=== PATIENT | male | born 1950 | race Caucasian/White ===

== ENCOUNTER 2017-04-10 08:42 | Emergency (ER) | payer MEDICARE, MEDICAID ==
[~2017-04-10] VITALS: Ht 152.4 cm; Wt 88.0 kg
[~2017-04-10 08:42] MED LIST: ASPIR 8181 M1 PO; AUGMENTIN 875-1 EACH PO; BACTRIM DS TAB1 EACH PO; CEFUROXIME500 MG PO; COZAAR 50 MG TA50 M2 PO; DUONEB 2.5-0.5 M3 ML INH; IRON325 PO; LASIX 40 MG TAB40 M2 PO; NAPROSYN500 M1 PO; NAPROSYN500 MG PO; NORCO 5-325 TA1 EACH PO; NYSTATIN15 G1 TOP; OMEPRAZOLE40 MG PO; PHENERGAN 25 MG25 M1 PO; POTASSIUM20 PO; PROAIR RESPICL90 MCG INH; SILVADENE20 GM TOP; SYMBICORT160 MCG/4. INH; TRAMADOL 50 MG50 MG PO
[2017-04-10 09:11] LABS: HEMOGLOBIN 11.6 gm/dL (14.0-18.0); RBC 3.78 mil/uL (4.50-6.00)
[2017-04-10 09:12] LABS: ABSOLUTE BASOPHILS 0.1 thou/uL (0.0-0.2); ABSOLUTE EOSINOPHILS 0.3 thou/uL (0.0-0.7); ABSOLUTE LYMPHOCYTES 1.1 thou/uL (0.8-5.3); ABSOLUTE MONOCYTES 0.7 thou/uL (0.0-1.2); ABSOLUTE NEUTROPHILS 6.2 thou/uL (1.6-8.1); BASOPHILS 1.3 %; EOSINOPHILS 3.2 %; LYMPHOCYTES 13.4 %; MCH 30.6 pg (26.0-34.0); MCV 89.9 fL (80.0-100.0); MONOCYTES 8.4 %; MPV 6.9 fl. (7.2-11.1); NUCLEATED RBCS 0 /100WBC; PLATELET COUNT* 236 thou/uL (150-400); POLYS 73.7 %; RDW-CV 17.4 % (10.5-14.5); WBC 8.4 thou/uL (4.0-11.0)
[2017-04-10 09:18] LABS: ANION GAP 4 mmol/L (7-16); BUN 22 mg/dL (7-18); CALCIUM 8.5 mg/dL (8.5-10.1); CHLORIDE 102 mmol/L (98-107); CO2 32 mmol/L (21-32); CREATININE 0.9 mg/dL (0.6-1.3); GLUCOSE 86 mg/dL (70-99); SODIUM 138 mmol/L (136-145)
[2017-04-10 09:23] LABS: APTT 30.6 Seconds (25.0-31.3); INR 1.1; PROTIME 10.8 Seconds (9.20-11.50)
[2017-04-10 09:34] LABS: TROPONIN-I LEVEL <0.06 ng/mL (<0.06)
[2017-04-10 09:46] LABS: ALBUMIN 2.2 g/dL (3.4-5.0); ALKALINE PHOSPHATASE 372 U/L (46-116); CK-MB MASS < 0.5 ng/mL (<0.5-3.6); LIPASE 72 U/L (73-393); MAGNESIUM 1.8 mg/dL (1.8-2.4); NT-PRO BRAIN NAT PEPTIDE 168 pg/mL (<300); SGOT 32 U/L (15-37); SGPT 23 U/L (30-65); TOTAL BILIRUBIN 0.6 mg/dL (<0.1-1.0); TOTAL PROTEIN 7.7 g/dL (6.4-8.2)
[2017-04-10 12:16] VITALS: BP 164/83
--- NOTE | 2017-04-10 17:46 | EKG ---
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 : 1950 Requested By: Abelardo Lucero Order Number: [id number] MD: Charli Romano Measurements Intervals [place] Rate: 83 P: 47 IN: 162 QRS: 33 QRSD: 116 T: 5 QT: 420 QTc: 494 Interpretive Statements Sinus rhythm Nonspecific intraventricular conduction delay Compared to ECG 03/27/2017 10:15:59 Intraventricular conduction delay now present T-wave abnormality no longer present Electronically Signed On 04-10-2017 17:46:32 [employer] by Charli Romano [email or web address] <ELECTRONICALLY SIGNED> By: Charli Romano MD, [facility] 04/10/17 1746 0858 0858 Charli Romano MD, [facility] /EPI
== END 2017-04-10 12:27 | disposition home or self-care (01) ==
LOC: M.ERS 08:42
PROVIDERS: Family Medicine
DX: R07.89 Other chest pain (principal); I10 Essential (primary) hypertension

== ENCOUNTER 2017-09-08 20:07 | Inpatient (IN) | payer MEDICARE, MEDICAID ==
[~2017-09-08] VITALS: Ht 160 cm; Wt 75.3 kg
--- NOTE | ~2017-09-08 | EKG ---
[place] [address] ELECTROCARDIOGRAM REPORT Name: SOM GOODWIN Room: [address] ADM IN .R.#: [id number] Admission: 09/08/17 Attend Phys: Herberth Gonzalez, Discharge: Date of : 48 Report #: [id number] THIS REPORT FOR: //name// [facility] ED Test Date: 2017-09-08 Test Time: 20:13:52 Pat Name: SOM GOODWIN Department: Room: [address] Gender: M Manager Assembly: ap : 1950 Requested By: Herberth Gonzalez Order Number: [id number] Reading MD: Measurements Intervals [place] Rate: 109 P: 73 ID: 150 QRS: 91 QRSD: 105 T: 39 QT: 323 QTc: 436 Interpretive Statements Sinus tachycardia Right axis deviation Compared to ECG 04/10/2017 08:58:15 Right-axis deviation now present Sinus rhythm no longer present Intraventricular conduction delay no longer present [email or web address] By: 12 12 Epiphany EpiphanyMD /EPI
[2017-09-08 20:12] VITALS: BP 102/71
[2017-09-08 20:47] LABS: ANION GAP 7 mmol/L (7-16); BUN 40 mg/dL (7-18); CALCIUM 9.1 mg/dL (8.5-10.1); CHLORIDE 99 mmol/L (98-107); CO2 31 mmol/L (21-32); CREATININE 1.6 mg/dL (0.6-1.3); GLUCOSE 150 mg/dL (70-99); HEMATOCRIT 38.7 % (42.0-52.0); HEMOGLOBIN 13.3 gm/dL (14.0-18.0); MCH 31.8 pg (26.0-34.0); MCHC 34.3 g/dL (28.0-37.0); MCV 92.8 fL (80.0-100.0); MPV 7.3 fl. (7.2-11.1); NUCLEATED RBCS 0 /100WBC; PLATELET COUNT* 182 thou/uL (150-400); POTASSIUM 4.1 mmol/L (3.5-5.1); RBC 4.17 mil/uL (4.50-6.00); RDW-CV 15.4 % (10.5-14.5); SODIUM 137 mmol/L (136-145); WBC 8.6 thou/uL (4.0-11.0)
[2017-09-08 20:55] LABS: ALBUMIN 2.1 g/dL (3.4-5.0); ALKALINE PHOSPHATASE 314 U/L (46-116); SGOT 37 U/L (15-37); SGPT 26 U/L (30-65); TOTAL BILIRUBIN 0.7 mg/dL (<0.1-1.0); TOTAL PROTEIN 8.7 g/dL (6.4-8.2); TROPONIN-I LEVEL <0.06 ng/mL (<0.06)
[2017-09-08] MEDS ORDERED: SSD CREAM 1% 5050 GM (21:12)
[2017-09-08 21:42] LABS: ABSOLUTE LYMPHOCYTES 0.9 thou/uL (0.8-5.3); ABSOLUTE MONOCYTES 0.3 thou/uL (0.0-1.2); ABSOLUTE NEUTROPHILS 7.5 thou/uL (1.6-8.1); ANISOCYTOSIS Occasional; PLATELET ESTIMATE ADEQUATE; TOXIC GRANULATION 1+
[2017-09-08 21:53] LABS: BE 2.8 mmol/L (-2 to +3); HCO3 28.8 mmol/L (22.0-26.0); PCO2 49.5 mmHg (35.0-45.0); pH 7.382 (7.340-7.450)
[2017-09-08 22:15] VITALS: BP 117/61
[2017-09-08 22:20] VITALS: BP 139/93
[2017-09-08 23:26] LABS: URINE BILIRUBIN NEGATIVE (Negative); URINE BLOOD NEGATIVE (Negative); URINE CLARITY CLEAR; URINE COLOR DARK YELLOW; URINE GLUCOSE-RANDOM NEGATIVE (Negative); URINE KETONES TRACE (Negative); URINE LEUKOCYTES NEGATIVE (Negative); URINE NITRITE NEGATIVE (Negative); URINE PROTEIN 3+ (Negative); URINE SPECIFIC GRAVITY 1.025 (1.005-1.030)
[2017-09-09 00:06] LABS: SQUAMOUS 0-3 Few /LPF (0-3)
[2017-09-09 00:07] LABS: AMORPHOUS URATES Moderate /LPF (None Seen); COARSE GRANULAR CASTS 4-10 Moderate /LPF (None Seen); FINE GRANULAR CASTS 4-10 Moderate /LPF (None Seen); HYALINE CASTS 0-3 Few /LPF (None Seen); MUCUS >6 Heavy strn/LPF (None Seen); URINE RBC 0-2 Rare /HPF (0-2); URINE WBC None Seen /HPF (0-5); WAXY CAST 0-3 Few /LPF (None Seen)
[2017-09-09 04:00] VITALS: BP 95/53
[2017-09-09 08:15] VITALS: BP 147/77
[2017-09-09 12:04] VITALS: BP 149/73
--- NOTE | 2017-09-09 14:52 | EKG ---
[place] [address] ELECTROCARDIOGRAM REPORT Name: SOM GOODWIN Room: [address] ADM IN .R.#: [id number] Admission: 09/08/17 Attend Phys: Herberth Gonzalez, Discharge: Date of : 48 Report #: [id number] THIS REPORT FOR: //name// [facility] ED Test Date: 2017-09-08 Test Time: 20:13:52 Pat Name: SOM GOODWIN Department: Room: [address] Gender: M Manager Hotel: ap : 1950 Requested By: Herberth Gonzalez Order Number: [id number] Christos MD: Ck Mack Measurements Intervals [place] Rate: 109 P: 73 ID: 150 QRS: 91 QRSD: 105 T: 39 QT: 323 QTc: 436 Interpretive Statements Sinus tachycardia artifact noted Right axis deviation Compared to ECG 04/10/2017 08:58:15 Right-axis deviation now present Sinus rhythm no longer present Electronically Signed On 09-09-2017 14:52:27 CDT by Ck Mack [email or web address] <ELECTRONICALLY SIGNED> By: Ck Mack MD, [facility] 09/09/17 1452 12 12 Ck Mack MD, [facility] /EPI
--- NOTE | 2017-09-09 14:56 | EKG ---
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
[2017-09-09 16:04] VITALS: BP 158/84
[2017-09-09 20:00] VITALS: BP 155/81
[2017-09-10] VITALS (7 sets, daily range): BP systolic 124–151; BP diastolic 74–93
[2017-09-10 04:52] LABS: ABSOLUTE LYMPHOCYTES 0.8 thou/uL (0.8-5.3); ABSOLUTE MONOCYTES 0.7 thou/uL (0.0-1.2); BASOPHILS 0.3 %; EOSINOPHILS 0.3 %; HEMATOCRIT 34.8 % (42.0-52.0); HEMOGLOBIN 11.7 gm/dL (14.0-18.0); MCH 31.3 pg (26.0-34.0); MCHC 33.6 g/dL (28.0-37.0); MONOCYTES 10.2 %; NUCLEATED RBCS 0 /100WBC; PLATELET COUNT* 134 thou/uL (150-400); POLYS 77.2 %; RBC 3.74 mil/uL (4.50-6.00); RDW-CV 15.3 % (10.5-14.5); WBC 6.5 thou/uL (4.0-11.0)
[2017-09-10 05:20] LABS: ANION GAP 6 mmol/L (7-16); BUN 14 mg/dL (7-18); CALCIUM 8.1 mg/dL (8.5-10.1); CHLORIDE 98 mmol/L (98-107); CO2 28 mmol/L (21-32); CREATININE 0.7 mg/dL (0.6-1.3); GLUCOSE 97 mg/dL (70-99); MAGNESIUM 1.6 mg/dL (1.8-2.4); POTASSIUM 4.4 mmol/L (3.5-5.1); SODIUM 132 mmol/L (136-145); TROPONIN-I LEVEL <0.06 ng/mL (<0.06)
[2017-09-11 04:44] LABS: CALCIUM 8.6 mg/dL (8.5-10.1); CREATININE 0.8 mg/dL (0.6-1.3); MAGNESIUM 1.8 mg/dL (1.8-2.4); POTASSIUM 4.1 mmol/L (3.5-5.1)
[2017-09-11 04:46] LABS: HEMATOCRIT 36.5 % (42.0-52.0); HEMOGLOBIN 12.4 gm/dL (14.0-18.0); MCHC 34.1 g/dL (28.0-37.0); MCV 91.1 fL (80.0-100.0); MPV 7.1 fl. (7.2-11.1); RBC 4.01 mil/uL (4.50-6.00); RDW-CV 14.8 % (10.5-14.5); WBC 5.7 thou/uL (4.0-11.0)
--- NOTE | 2017-09-11 07:33 | CON ---
[address] [address] CONSULTATION Name: SOM GOODWIN Room: [address] IN .#: [id number] Admission: 09/08/17 Attend Phys: Herberth Gonzalez, Discharge: Date of : 48 Report #: [id number] THIS REPORT FOR: //name// CC: FAM physician/PCP Herberth Gonazlez DATE OF SERVICE: 09/10/2017 ATTENDING PHYSICIAN: Herberth Gonzalez MD. REASON FOR EVALUATION: Pneumonitis in the setting of chronic disability, also has pressure related ulcer involving the sacrum. HISTORY OF PRESENT ILLNESS: Chart reviewed, patient examined. This 67-year-old gentleman with blindness since , also has some degree of mental incapacity who is cared at home by his sister who developed chest-related discomfort. It is not clear that he had significant shortness of breath, although he did have productive cough of greenish sputum, somewhat difficult to obtain a history. He does confirm the chest discomfort. He has not had evident fevers since admission. On evaluation, chest x-ray showed some pulmonary infiltrates. ABGs confirm borderline hypoxemia with pO2 in the 60s. He was started on broad spectrum empiric therapy for suspected pneumonitis. Initial lactic acid was 2.3 and repeat was down to 1.9. Blood cultures are sterile thus far. Sputum culture is pending. ALLERGIES: None known. CURRENT MEDICATIONS: Include hydrocodone as needed, losartan, azithromycin, cefdinir, enoxaparin, budesonide, pantoprazole and one-time dose of vancomycin as well. PAST MEDICAL HISTORY: As described above, blindness, apparently since , history of hypertension, chronic anemia. SOCIAL HISTORY: Nonsmoker, no ethanol, no illicit drug use. FAMILY HISTORY: Noncontributory. REVIEW OF SYSTEMS: He denies any significant gastrointestinal-related complaints. He has had a recent bowel movement. Denies significant abdominal related complaints. PHYSICAL EXAMINATION: GENERAL: Appears somewhat chronically ill, undernourished. He is in [id number]-iijnzvii distress. He is somewhat anxious. VITAL SIGNS: Temperature 97.7, pulse 88, respirations 18, [place] [address] CONSULTATION Name: SOM GOODWIN Room: [address]#: [id number] Admission: 09/08/17 Attend Phys: Herberth Gonzalez, Discharge: Date of : 48 Report #: [id number] 151/77. SKIN: Warm, dry, no rashes. 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 NECK: Supple. LUNGS: Few scattered coarse breath sounds. HEART: Regular. I do not appreciate murmur. ABDOMEN: Soft. There are no peritoneal signs. GENITOURINARY: Deferred. RECTAL: Deferred. LABORATORY DATA: Chest x-ray showed bilateral patchy pulmonary infiltrates without evidence of significant effusion. Electrolytes: Sodium 132, potassium 4.4, chloride 98, bicarbonate is 28, BUN and creatinine 14 and 0.7, glucose of 97. Estimated GFR of 112. CBC: White count of 6.5, H and H 11.7 and 34.8, platelets of 134. Blood cultures sterile thus far. Prealbumin of 10.7. Urinalysis, no white cells seen, 10-30 bacteria. ABGs: pH 7.38, pCO2 of 49.5, pO2 of 67.0. Liver function tests are otherwise unremarkable with the exception of alkaline phosphatase of 314, total protein of 87. Albumin of 2.1, calcium of 9.1. ASSESSMENT: Pneumonitis community-acquired. We will continue current therapy. It is actually somewhat tenuous. It may well be his baseline. We will await culture results in particular the sputum, try to increase his activity, I am not sure he is able to utilize incentive spirometer at this point. We will follow his clinical course and optimize his nutritional status. Wean off support as allowed. <ELECTRONICALLY SIGNED> By: Alan Mcpherson MD 09/11/17 0733 1114 [id number] Mcpherson MD /nt
[2017-09-11 08:00] VITALS: BP 112/81
[2017-09-11 15:56] VITALS: BP 169/92
[2017-09-11 20:00] VITALS: BP 152/91
[2017-09-12 04:27] LABS: HEMATOCRIT 39.8 % (42.0-52.0); HEMOGLOBIN 13.5 gm/dL (14.0-18.0); MCH 30.9 pg (26.0-34.0); MCHC 33.8 g/dL (28.0-37.0); MCV 91.3 fL (80.0-100.0); MPV 7.2 fl. (7.2-11.1); RBC 4.36 mil/uL (4.50-6.00); RDW-CV 15.2 % (10.5-14.5); WBC 6.9 thou/uL (4.0-11.0)
[2017-09-12 04:50] LABS: CALCIUM 8.5 mg/dL (8.5-10.1); CREATININE 0.7 mg/dL (0.6-1.3); MAGNESIUM 1.9 mg/dL (1.8-2.4); POTASSIUM 4.1 mmol/L (3.5-5.1)
[2017-09-12] MEDS ORDERED: AZITHROMYCIN 2250 MG PO (08:17)
[2017-09-12] MEDS ORDERED: PREDNISONE 10 M10 MG PO (08:17)
[2017-09-12] MEDS ORDERED: CEFDINIR300 MG PO (08:17)
[2017-09-12 09:45] VITALS: BP 139/92
[2017-09-12 16:12] LABS: GLOBULIN TOTAL 4.2 g/dL (2.2-3.9); M-SPIKE Not Observed g/dL (Not Observed)
[2017-09-12 16:56] VITALS: BP 142/89
[2017-09-12 19:46] VITALS: BP 142/89
[2017-09-12 20:00] VITALS: BP 151/86
[2017-09-13 00:08] VITALS: BP 189/102
[2017-09-13 02:06] VITALS: BP 118/64
[2017-09-13 04:00] VITALS: BP 118/61
[2017-09-13 09:06] VITALS: BP 127/80
[2017-09-13 16:36] VITALS: BP 170/100
[2017-09-13 20:00] VITALS: BP 156/100
[2017-09-14 08:00] VITALS: BP 117/72
[2017-09-14 15:44] VITALS: BP 98/57
[2017-09-14 21:00] VITALS: BP 144/97
[2017-09-15 00:14] VITALS: BP 167/64
[2017-09-15 04:00] VITALS: BP 136/76
[2017-09-15 06:44] LABS: HEMATOCRIT 36.4 % (42.0-52.0); HEMOGLOBIN 12.2 gm/dL (14.0-18.0); MCH 30.9 pg (26.0-34.0); MCHC 33.5 g/dL (28.0-37.0); MCV 92.3 fL (80.0-100.0); MPV 6.6 fl. (7.2-11.1); NUCLEATED RBCS 0 /100WBC; PLATELET COUNT* 191 thou/uL (150-400); RBC 3.95 mil/uL (4.50-6.00); RDW-CV 15.1 % (10.5-14.5); WBC 11.2 thou/uL (4.0-11.0)
[2017-09-15 06:52] LABS: ALBUMIN 1.6 g/dL (3.4-5.0); CALCIUM 8.3 mg/dL (8.5-10.1); CREATININE 0.7 mg/dL (0.6-1.3); TOTAL BILIRUBIN 0.3 mg/dL (<0.1-1.0); TOTAL PROTEIN 6.6 g/dL (6.4-8.2)
[2017-09-15 08:10] VITALS: BP 106/61
[2017-09-15 08:10] LABS: ABSOLUTE MONOCYTES 0.1 thou/uL (0.0-1.2); ABSOLUTE NEUTROPHILS 10.1 thou/uL (1.6-8.1)
[2017-09-15 08:11] LABS: PLATELET ESTIMATE ADEQUATE
[2017-09-15 12:58] LABS: URINE BILIRUBIN NEGATIVE (Negative); URINE BLOOD NEGATIVE (Negative); URINE CLARITY CLEAR; URINE COLOR YELLOW; URINE GLUCOSE-RANDOM NEGATIVE (Negative); URINE KETONES NEGATIVE (Negative); URINE LEUKOCYTES-REFLEX NEGATIVE (Negative); URINE NITRITE-REFLEX NEGATIVE (Negative); URINE PROTEIN 1+ (Negative); URINE SPECIFIC GRAVITY <= 1.005 (1.005-1.030); URINE UROBILINOGEN 0.2 E.U./dl (0.2-1.0)
[2017-09-15 17:04] VITALS: BP 139/78
[2017-09-15 20:20] VITALS: BP 142/87
[2017-09-16 00:21] VITALS: BP 169/96
[2017-09-16 04:07] VITALS: BP 149/85
[2017-09-16 08:45] VITALS: BP 136/72
--- NOTE | 2017-09-16 10:00 | CON ---
[facility] [address] [place] [address] CONSULTATION Name: SOM GOODWIN Room: [address] IN [facility]#: [id number] Admission: 09/08/17 Attend Phys: Herberth Gonzalez, Discharge: Date of : 48 Report #: [id number] THIS REPORT FOR: //name// CC: LILIA physician/PCP Herberth Gonzalez DATE OF SERVICE: 09/12/2017 REASON FOR CONSULTATION: Sigmoid volvulus, abdominal pain and vomiting. HISTORY OF PRESENT ILLNESS: This is a 67-year-old male who presented to the hospital with chest pain and found to have pneumonia. The patient has been treated for the same since 09/08/2017. The patient was getting ready to be discharged when he started developing abdominal pain, nausea and vomiting today. Therefore, CT of abdomen and pelvis was obtained. This revealed a sigmoid volvulus. Currently, the patient is complaining of pain, but his abdomen is somewhat soft. He has vomited 20 mL of bilious liquid. He does not have any fever or leukocytosis. PAST MEDICAL HISTORY: Significant for history of hypertension and anemia. The patient is blind. He also has GERD, for which he takes omeprazole and chronic pain, for which he is on tramadol. ALLERGIES: No known drug allergy. MEDICATIONS: Please refer to hospital [facility]. SOCIAL HISTORY: The patient denies tobacco or alcohol use. He is legally blind in both eyes. FAMILY HISTORY: Significant for COPD, but negative for GI malignancy. PHYSICAL EXAMINATION: VITAL SIGNS: Reveals blood pressure of 142/89, respirations 20, pulse 92 and temperature 98.5. LUNGS: Clear. CARDIOVASCULAR: Regular. ABDOMEN: Soft. Mildly tender to palpation in all 4 quadrants. Bowel sounds are positive. LABORATORY DATA: Labs reveal sodium of 138, potassium is 4.1, BUN is 20, creatinine 0.7 and glucose 150. AST is 37, ALT 26, alkaline phosphatase 314 and total bilirubin 0.7. WBC 6.9 with hemoglobin of 13.5 and platelet of 183,000. [place] [address] CONSULTATION Name: SOM GOODWIN Room: [address] IN [facility]#: [id number] Admission: 09/08/17 Attend Phys: Herberth Gonzalez, Discharge: Date of : 48 Report #: [id number] IMAGING: As discussed above. ASSESSMENT AND PLAN: The patient with sigmoid volvulus. We will go ahead and perform a flexible sigmoidoscopy and try to resolve the volvulus. We will make further recommendations once the flexible sigmoidoscopy is completed. <ELECTRONICALLY SIGNED> By: Rea Atkinson MD 09/16/17 1000 [id number] Atkinson MD /nt
[2017-09-16 16:27] VITALS: BP 136/90
[2017-09-16 21:00] VITALS: BP 149/83
[2017-09-17 02:16] VITALS: BP 167/99
[2017-09-17 04:19] LABS: HEMATOCRIT 38.4 % (42.0-52.0); HEMOGLOBIN 12.9 gm/dL (14.0-18.0); MCH 31.2 pg (26.0-34.0); MCHC 33.6 g/dL (28.0-37.0); MCV 92.7 fL (80.0-100.0); MPV 6.7 fl. (7.2-11.1); RBC 4.14 mil/uL (4.50-6.00); RDW-CV 15.3 % (10.5-14.5); WBC 8.3 thou/uL (4.0-11.0)
[2017-09-17 04:44] LABS: ALBUMIN 1.7 g/dL (3.4-5.0); CALCIUM 8.4 mg/dL (8.5-10.1); CREATININE 0.5 mg/dL (0.6-1.3); MAGNESIUM 2.1 mg/dL (1.8-2.4); POTASSIUM 4.5 mmol/L (3.5-5.1); TOTAL BILIRUBIN 0.4 mg/dL (<0.1-1.0); TOTAL PROTEIN 6.8 g/dL (6.4-8.2)
[2017-09-17 08:43] VITALS: BP 158/62
[2017-09-17 09:30] VITALS: BP 127/74
[2017-09-17 09:37] VITALS: BP 127/74
== END 2017-09-17 11:40 | disposition home health service (06) | DRG 871 ==
LOC: M.ERS 20:07 → M.2W 21:17 → M.TBA-ER 21:17 → M.2W 21:56 → M.ORTHSURG 09-10 20:41
PROVIDERS: Internal Medicine; Internal Medicine Infectious Disease; Personal Emergency Response Attendant; Specialist; ADMIT Family Medicine
PROC: 0D7N8ZZ Dilation of Sigmoid Colon, Via Natural or Artificial Opening Endoscopic (ICD-10-PCS; principal; 2017-09-14)
DX: A41.9 Sepsis, unspecified organism (principal); K56.2 Volvulus; J96.01 Acute respiratory failure with hypoxia; J15.9 Unspecified bacterial pneumonia; J96.02 Acute respiratory failure with hypercapnia; E43 Unspecified severe protein-calorie malnutrition; N17.9 Acute kidney failure, unspecified; N39.0 Urinary tract infection, site not specified; L89.150 Pressure ulcer of sacral region, unstageable; G89.29 Other chronic pain; K64.8 Other hemorrhoids; I12.9 Hypertensive chronic kidney disease with stage 1 through stage 4 chronic kidney disease, or unspecified chronic kidney disease; N18.9 Chronic kidney disease, unspecified; R07.89 Other chest pain; D64.9 Anemia, unspecified; K21.9 Gastro-esophageal reflux disease without esophagitis; H54.7 Unspecified visual loss; Z68.29 Body mass index [BMI] 29.0-29.9, adult; Z79.2 Long term (current) use of antibiotics; Z79.899 Other long term (current) drug therapy; Z82.49 Family history of ischemic heart disease and other diseases of the circulatory system; Z82.5 Family history of asthma and other chronic lower respiratory diseases